=== PATIENT | male | born 1970 | race Two or more races ===

== ENCOUNTER 2025-06-20 10:24 | Emergency (ER) | payer OTHER, SELFPAY ==
[2025-06-20] VITALS (7 sets, daily range): BP systolic 128–178; BP diastolic 63–133; PULSE 4–71; RESP 16–20; TEMP 36.5; O2SAT 97–100; BMI 25.0
--- NOTE | 2025-06-20 10:45 | PC.NURSE ---
PT COMING IN FORM ED LOBBY WITH C/O L SHOULDER PAIN; PER PT; IT HAPPENED AT WORK WHILE HE WAS UP IN A LADDER. PT REPORTS GRABBING ONTO THE LADDER WHEN ALMOST FALLING AND HURT L SHOULDER IN THE PROCESS. PT DENIES FALLING AT THIS TIME. PT DENIES HITTING HEAD. NO LOC. PT DENIES ANY PMH. PT CONNECTED TO MONITORS AT THIS TIME.
--- NOTE | 2025-06-20 11:00 | EDNOTE_ITS ---
Upper Extremity Injury RME/HPI General Chief Complaint: Extremity Injury, Upper Stated Complaint: LEFT SHOULDER DISLOCATION Time Seen by Provider: 06/20/25 10:54 Arrival date/time: 06/20/25 10:24 RME / HPI RME / HPI narrative: DR. DAMON MAIN ED EVALUATION: 54-year-old male with no significant past medical history presents with left shoulder pain after attempting to brace himself with his left arm while falling from a ladder in the [place] this morning. He did not hit his head and denies loss of consciousness, head trauma, or actual fall to the ground. 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 Last oral intake was around 5 PM yesterday. No current tobacco, alcohol, or drug use. No known drug allergies. Related Data Previous Rx's ?Medication ?Instructions ?Recorded ibuprofen 600 mg tablet 600 mg PO TID PRN pain #30 t abs 05/25/23 ibuprofen 600 mg tablet 600 mg PO Q6H PRN pain #30 t abs 10/01/23 Allergies Allergy/AdvReac Type Severity Reaction Status Date / Time No Known Allergies Allergy Verified 06/20/25 10:26 Review of Systems Review of Systems Systems Reviewed: All systems reviewed, normal except as documented Past Medical History Social History SMOKING STATUS: Never smoker SUBSTANCE USE: does not use ALCOHOL: Never ED Exam Narrative Physical exam: Constitutional: Awake, alert, nontoxic, appears uncomfortable, in pain. HEENT: NC, AT, EOMI Neck: Supple CV: RRR, no m/r/g Lungs: CTAB, no w/r/r, no respiratory distress. Extremities: left shoulder deformity, appears to be dislocated; NV is intact Neuro: AAOx3, CN 2-12 GIBL, no acute neuro deficit noted. Skin: Warm, dry, intact Course Course Course Narrative: Reduction was completed successfully with no complications. Patient monitored during moderate sedation. Recovered well. Able to discharge home in stable condition. Recommended outpatient follow-up with orthopedics and to keep arm in sling for the next couple of weeks -do not raise arm above shoulder level to help facilitate healing. Discharged home in stable condition. Quality Measures none Orders Category Date Time Status Clarifier Operator Helper Q4H START 00 Care 06/20/25 11:18 Completed Insert IV NOW Care 06/20/25 11:00 Completed XR shoulder LT min 2V Stat Exams 06/20/25 11:00 Completed Ketamine Inj Med 06/20/25 11:00 Discontinued 35 mg IVP X1 ONE Propofol Inj [Diprivan Inj] Med 06/20/25 11:00 Discontinued 35 mg IV X1 ONE Propofol Inj [Diprivan Inj] Med 06/20/25 11:28 Discontinued 50 mg IV X1 ONE Sodium Chloride 0.9% 1000 ml [Ns] 500 ml Med 06/20/25 11:00 Discontinued IV 999 mls/hr fentaNYL INJ [Sublimaze Inj] Med 06/20/25 11:24 Discontinued 50 mcg IVP X1 ONE fentaNYL INJ [Sublimaze Inj] Med 06/20/25 11:46 Discontinued 50 mcg IVP X1 ONE Vital Signs Vital signs: Vital Signs Temperature 97.7 F 06/20/25 10:47 Pulse Rate 69 06/20/25 10:47 Respiratory Rate 20 06/20/25 10:47 Blood Pressure 128/96 H 06/20/25 10:47 Pulse Oximetry (%) 99 06/20/25 10:47 Oxygen Delivery Method Room Air 06/20/25 10:47 PROCEDURES: Orthopedic Joint Reduction Shoulder reduction: Time Out Performed: Yes Side: Left Joint Reduction Location: shoulder Analgesia: procedural sedation Shoulder Technique Used (if applicable): external rotation Post-reduction neuro exam: intact Post-reduction vascular: intact Post Reduction X-Ray Obtained: Yes Post Reduction X-Ray Results: reduced Patient Tolerated Procedure: well Procedural Sedation Indication: fracture/dislocation reduction Presedation Evaluation: Completed ASA: 1 Preparation: cardiac cath lab technologist applied, pulse oximeter, supplemental O2 applied, suction/airway equipment at bedside and IV secured Fentanyl: IV Fentanyl dose (mcg): 50 Ketamine: IV Ketamine dose (mg): 35 IV Propofol dose (mg): 50 Patient Tolerated Procedure: well Complications: none Extremity Injury MDM Narrative MDM Narrative:: Snehal Banuelos am scribing for and in the presence of Dr. Damon. Patient data External records reviewed:: [facility] previous records and Other (specify) (x-rays on phone from this morning (see HPI)) Clinical information provided by:: patient Social determinants that could affect healthcare access:: none Patient has the following chronic illnesses:: Denies any PMHx, surgeries, daily medications, or known allergies. How is presenting disease/condition affected by chronic disease/condition?: no chronic disease Evaluation data The following diagnostics were reviewed and interpreted by me:: radiology exam(s) Lab and/or radiology exams considered but not ordered:: none Interpretation Summary: Procedure(s): XR shoulder LT min 2V Accession Number(s): [id number] cc: Cade Pappas MD; Parag Bañuelso MD; Lindsay Damon MD~ Examination: Left shoulder 2 views TECHNIQUE: AP internal rotation and external rotation left shoulder 2 views Date and time: June 20, 2025 1145 hours INDICATIONS: Shoulder dislocation today post reduction films. FINDINGS: Successful reduction shoulder dislocation No AC separation No fracture IMPRESSION: Successful reduction shoulder dislocation Dictated By: Parag Bañuelos MD Medications / Prescriptions Medications or Prescriptions considered but not ordered:: none Medication administrations:: Medication Administration History Discontinued Medications Fentanyl Citrate (Fentanyl Cit Inj 50 Mcg/Ml Amp 2ml) 50 mcg IVP X1 ONE Stop: 06/20/25 11:25 Last Admin: 06/20/25 11:28 Dose: 50 mcg Documented By: GM Fentanyl Citrate (Fentanyl Cit Inj 50 Mcg/Ml Amp 2ml) 50 mcg IVP X1 ONE Stop: 06/20/25 11:47 Last Admin: 06/20/25 11:30 Dose: 50 mcg Documented By: Sodium Chloride (Ns) 500 mls @ 999 mls/hr IV .Q31M ONE Stop: 06/20/25 11:30 Last Infusion: 06/20/25 12:01 Dose: Infused Documented By: Admin: 06/20/25 11:26 Dose: 999 mls/hr Documented By: Ketamine HCl (Ketamine 50 Mg/Ml Vial 10 Ml) 35 mg IVP X1 ONE Stop: 06/20/25 11:01 Last Admin: 06/20/25 11:25 Dose: 35 mg Documented By: Comments: IV PUSHED BY DR. LINDSAY DAMON Propofol (Propofol Inj 10 Mg/Ml Vial 20 Ml) 35 mg IV X1 ONE Stop: 06/20/25 11:01 Last Admin: 06/20/25 11:28 Dose: Not Given Documented By: GM Non-Admin Reason: Cancelled by Provider Propofol (Propofol Inj 10 Mg/Ml Vial 20 Ml) 50 mg IV X1 ONE Stop: 06/20/25 11:29 Last Admin: 08/15/25 11:24 Dose: 50 mg Documented By: BENIGNO Comments: IV PUSHED BY DR. LINDSAY DAMON see above Consultations Consultation(s) initiated? (list below): No Diagnosis Upper Extremity Injury Differential Diagnosis: other (Left shoulder dislocation, rotator cuff tear, and proximal humerus fracture.) Most likely diagnosis given after review of the tests above:: Dislocation closed, shoulder Admission Indicated Admission indicated?: not indicated Admission Request Was there a request for admission?: No Disposition Plan Disposition Plan: Discharge Discharge Attestation Discharge Attestation: The patient and all family members were given an opportunity to ask questions and understood the discharge instructions. Discharge instructions specifically effects, indications for sooner follow up or return to the emergency department, and the expected course of current diagnosis. Patient condition: Stable Discharge Plan Plan Patient Disposition: HOME (Self Care) Patient condition on transfer: Stable Prescriptions/Referrals Prescriptions/Med Rec: No Action ibuprofen 600 mg tablet 600 mg PO TID PRN (Reason: pain) Qty: 30 0RF ibuprofen 600 mg tablet 600 mg PO Q6H PRN (Reason: pain) Qty: 30 0RF Referrals: Cade Pappas MD [Primary Care Provider] - In 1 week Bob Medina MD [Physician] - In 1 week Problem List Clinical Impression: Dislocation closed, shoulder Patient/Caregiver Discharge Instructions Education Materials: ED Dislocation: Shoulder (Reduced), ED Sedation Conscious Dc Ch, ED Sling and Swathe Additional Instructions: Use sling for the next 2 weeks to help with healing. May use ibuprofen 600 mg every 8 hours as needed for pain. May also use Tylenol 1 g every 6 hours as needed for pain. Avoid raising left arm above shoulder level for the next 2 weeks. Okay to use the other arm at work. Print Language: Bahamian Stand Alone Forms: [employer] Award Info., Work/School Release, Patient Portal Info Letter
[2025-06-20] MEDS: PROPOFOL INJ 10 MG/ML VIAL 20 ML 50 MG IV (11:24)
[2025-06-20] MEDS: KETAMINE 50 MG/ML VIAL 10 ML 35 MG IVP (11:25)
[2025-06-20] MEDS: SODIUM CHLORIDE 0.9% 1000 ML 500 ML 999 ML IV (11:26)
[2025-06-20] MEDS: fentaNYL CIT INJ 50 mCg/ML AMP 2ML IVP ×2 (11:28→11:30)
== END 2025-06-20 13:07 | disposition home or self-care (01) ==
PROVIDERS: Emergency Provider Family Medicine; PCP Family Medicine
DX: S43.005A Unspecified dislocation of left shoulder joint, initial encounter (principal); W11.XXXA Fall on and from ladder, initial encounter; Y93.89 Activity, other specified; Y92.89 Other specified places as the place of occurrence of the external cause; Y99.0 Civilian activity done for income or pay
CPT/HCPCS: 23650; 73030; 96361; 96374; 96375; 96376; 99283; J2704; J3010; J7030

== ENCOUNTER → 2025-09-08 | Outpatient (CLI) | payer OTHER, SELFPAY ==
--- NOTE | 2025-09-08 | XR_ITS ---
Examination: MRI right ankle: Without contrast Date and time of exam: September 08, 2025, 1134 hours INDICATIONS: Muscle and tendon strain initial encounter, injury after falling twisting injury June 2025 Technique: Multiple MRI axial and sagittal sections lumbar spine. Sagittal T2-weighted images, TR 3500, TE 118 T1 weighted transverse sections, TR 688 T8.5, T2-weighted sagittal sections T1 weighted sagittal sections TR 621, TE 30 T2 axial sections, TR 4, 190, TE 84. Findings: Thickening of the Achilles tendon Adequate marrow signal, no occult fracture bone contusion marrow edema or avascular necrosis. Negative for sinus Tarsi syndrome Edema in the subcutaneous tissue plantar aspect of the heel Mild plantar fasciitis Anterior posterior inferior tibiofibular ligaments intact High-grade sprain anterior talofibular ligament Tendinitis posterior tibial flexor digitorum tendons Extensor tendons intact Dome of the talus intact IMPRESSION: Achilles tendinosis Mild plantar fasciitis High-grade sprain anterior talofibular ligament. Tendinitis posterior tibial flexor digitorum tendons
--- NOTE | 2025-09-08 10:23 | XR_ITS ---
MRI shoulder, left, without contrast. Date and time: September 08, 2025, 11:02 a.m. INDICATIONS: Left shoulder pain after falling June 2025 Technique: Multiple axial, sagittal and coronal sections of the shoulder have been obtained. Siemens high-resolution 1.5 Dede MRI scanner is utilized. Axial fat-suppressed sections, TR 2350, TE 18 T2-weighted coronal fat-saturated images, TR 3500, TE 7100 T1-weighted coronal images, TR 500, TE 15 T2-weighted sagittal fat-saturated images, TR 3500, TE 57 T1-weighted sagittal sections, TR 504, TE 13. Findings: 3 cm full-thickness rotator cuff tear Subscapularis insertion is intact Subscapularis bursa is small. Long head of the biceps is in the bicipital groove. No definite tear of the biceps superior labral anchor is seen. Retraction of the musculotendinous junction of the rotator cuff is evident. Tendinosis pattern is moderate. Distance between the acromium and humeral head is 5.9 mm Atrophy of the supraspinatus muscle is severe. Atrophy of the infraspinatus muscle is moderate. Sagittal sections demonstrate a horizontal acromion. Acromioclavicular joint demonstrates mild osteoarthritis . Osacromiale is not identified. Small anterior labral tears. Bony glenoid fossa on the sagittal sections does not demonstrate osseous defect. Occult fracture or area of avascular necrosis is not seen. Acromioclavicular joint separation is not visible. Defect in the posterolateral margin of the humeral head is not seen Impression: 3 cm full-thickness rotator cuff tear Small anterior labral tears
== END | disposition home or self-care (01) ==
LOC: SMRI 09:58
PROVIDERS: PCP Nurse Practitioner Family; Referring Provider Family Medicine; Visit Provider Family Medicine
DX: M72.2 Plantar fascial fibromatosis (principal); S93.491A Sprain of other ligament of right ankle, initial encounter; S43.432A Superior glenoid labrum lesion of left shoulder, initial encounter; X37.1XXA Tornado, initial encounter; M76.821 Posterior tibial tendinitis, right leg; M75.102 Unspecified rotator cuff tear or rupture of left shoulder, not specified as traumatic
CPT/HCPCS: 73221; 73721